=== PATIENT | female | born 1960 | race Caucasian/White ===

== ENCOUNTER → 2017-09-17 | Outpatient (CLI) | payer OTHER ==
[2017-09-17 18:36] LABS: ALT/SGPT 44 U/L (12-78); BLOOD UREA NITROGEN 15 mg/dl (7-18); BUN/CREATININE RATIO 13.5 (10-20); CALCIUM 8.6 mg/dl (8.5-10.1); CARBON DIOXIDE 29 mmol/L (21-32); CHLORIDE 106 mmol/L (98-107); CREATININE 1.14 mg/dl (0.60-1.20); GLUCOSE 83 mg/dl (70-99); POTASSIUM 3.7 mmol/L (3.5-5.1); SODIUM 138 mmol/L (136-145)
[2017-09-17 18:42] LABS: CHOLESTEROL 129 mg/dl (0-200); HDL CHOLESTEROL 32 mg/dl; TRIGLYCERIDES 90 mg/dl (0-150); VERY LOW DENSITY LIPOPROT CALC 18 mg/dl
[2017-09-18 08:34] LABS: ESTIMATED AVERAGE GLUCOSE 123 mg/dl; HA1C FLAG Normal (Normal)
== END | disposition home or self-care (01) ==
LOC: C.LABMFLN 14:45
PROVIDERS: ATTEND Family Medicine
DX: I51.7 Cardiomegaly (principal); E78.00 Pure hypercholesterolemia, unspecified; E11.40 Type 2 diabetes mellitus with diabetic neuropathy, unspecified

== ENCOUNTER → 2017-10-18 | Outpatient (CLI) | payer OTHER | END | disposition home or self-care (01) | LOC: C.LABMFLN 14:14 | PROVIDERS: ATTEND Family Medicine | DX: J44.1 Chronic obstructive pulmonary disease with (acute) exacerbation (principal); R09.02 Hypoxemia; R91.8 Other nonspecific abnormal finding of lung field ==